=== PATIENT | male | born 1995 | race Caucasian/White ===

== ENCOUNTER 2017-07-22 10:39 | Emergency (ER) | payer BC ==
[2017-07-22] MEDS ORDERED: Ibuprofen TAB* 400 MG PO ONE (13:23)
--- NOTE | 2017-07-22 13:27 | ED ---
Head Injury - HPI Summary HPI Summary: 21 male presents to ED with complaints of head injury, headache, nausea, dizziness and feeling like he is in a daze since waking up this morning. Patient states he hit his head on the shower last night and earlier this week as well. Has not taken any medication for headache. Denies LOC, vomiting, vision changes/loss, memory loss and lethargy. No hematoma on head. No other injuries. Denies any other complaints at this time. No PMHx other than chronic migraines. Denies abdominal pain, trouble breathing or chest pain. No anticoagulants. - History Of Current Complaint Chief Complaint: EDHeadInjury Stated Complaint: HIT HEAD / 1DAY AGO Time Seen by Provider: 07/22/17 10:58 Hx Obtained From: Patient Mechanism Of Injury: Direct Blow - hit on shower head Onset/Duration: Started Hours Ago, Traumatic Onset of Pain: Hours - yesterday evening Severity Currently: Mild Severity Initially: Mild Pain Intensity: 3 Pain Scale Used: 0-10 Numeric Location of Head Injury: Parietal Character: Sharp, Throbbing, Aching Alleviating Factor(s): Rest Associated Signs And Symptoms: Nausea, Headache - Allergies/Home Medications Allergies/Adverse Reactions: Allergies Allergy/AdvReac Type Severity Reaction Status Date / Time No Known Allergies Allergy Verified 07/22/17 10:53 PMH/Surg Hx/FS Hx/Imm Hx Endocrine/Hematology History: Denies: Hx Diabetes Cardiovascular History: Denies: Hx Hypertension Respiratory History: Denies: Hx Asthma - Surgical History Surgery Procedure, Year, and Place: none - Immunization History Immunizations Up to Date: Yes Infectious Disease History: No Infectious Disease History: Denies: Traveled Outside the [place] in Last 30 Days - Family History Known Family History: Positive: None - Social History Alcohol Use: Occasionally Substance Use Type: Reports: None Smoking Status (MU): Never Smoked Tobacco Review of Systems Constitutional: Negative Eyes: Negative ENT: Negative Cardiovascular: Negative Respiratory: Negative Positive: Nausea Musculoskeletal: Negative Neurological: Other - feeling dizzy, dazed Positive: Headache All Other Systems Reviewed And Are Negative: Yes Physical Exam Triage Information Reviewed: Yes Vital Signs On Initial Exam: Initial Vitals Temp Pulse Resp BP Pulse Ox 98.2 F 73 15 131/74 98 07/22/17 10:49 07/22/17 10:49 07/22/17 10:49 07/22/17 10:49 07/22/17 10:49 Vital Signs Reviewed: Yes Appearance: Positive: Well-Appearing, No Pain Distress, Well-Nourished Skin: Positive: Warm, Skin Color Reflects Adequate Perfusion, Dry. Negative: Cold, Cyanosis @, Pale, Erythema @ Head/Face: Positive: Normal Head/Face Inspection, Other - no battles signs, racoon eyes, or facial bone tenderness. no hematomas or tenderness of scalp. Negative: Temporal Artery Tenderness, Scalp, Cephalohematoma Eyes: Positive: Normal, EOMI, BAL, Conjunctiva Clear ENT: Positive: Normal ENT inspection, Hearing grossly normal, Pharynx normal, TMs normal Neck: Positive: Supple, Nontender, No Lymphadenopathy Respiratory/Lung Sounds: Positive: Clear to Auscultation, Breath Sounds Present. Negative: Rales, Rhonchi, Wheezes Cardiovascular: Positive: Normal, RRR, Pulses are Symmetrical in both Upper and Lower Extremities. Negative: Murmur, Rub Abdomen Description: Positive: Nontender, No Organomegaly, Soft. Negative: CVA Tenderness (R), CVA Tenderness (L), Distended, Guarding, Peritoneal Signs, Pulsatile Mass Bowel Sounds: Positive: Present Musculoskeletal: Positive: Normal, Strength/ROM Intact. Negative: Pain @ Neurological: Positive: Normal - memory and concentration intact, Sensory/Motor Intact, Alert, Oriented to Person Place, Time, CN Intact II-III, Reflexes Intact , NV Bundle Intact Distally, Normal Gait, Finger to Nose - normal, Facial Symmetry, Speech Normal Psychiatric: Positive: Affect/Mood Appropriate - [place] Coma Scale Best Eye Response: 4 - Spontaneous Best Motor Response: 6 - Obeys Commands Best Verbal Response: 5 - Oriented Coma Scale Total: 15 Diagnostics - Vital Signs Vital Signs Temp Pulse Resp BP Pulse Ox 07/22/17 10:49 98.2 F 73 15 131/74 98 - Laboratory Lab Statement: Any lab studies that have been ordered have been reviewed, and results considered in the medical decision making process. Head Injury Course/Dx Course Of Treatment: PE findings and vital signs normal. Does not appear to need further evaluation or work up at this time. [place] CT scan rule does not recommend. Not showing signs that require or are concerning for hemorrhage requiring a CT. Possible mild concussion due to complaint of symptoms. No obvious signs of trauma or injury. given ibuprofen for headache. zofran for nausea. continue at home. follow up with pcp/formerly [facility]. aware of worsening signs and symptoms to watch out for. return if occur. - Diagnoses Provider Diagnoses: Head injury, Concussion without loss of consciousness Discharge - Discharge Plan Condition: Stable Disposition: HOME Prescriptions: Ondansetron ODT TAB* [Zofran 4 MG Odt TAB*] 4 mg PO Q6H PRN #5 tab.odt PRN Reason: Nausea Patient Education Materials: Head Injury (ED), Concussion (ED) Forms: *School Release Referrals: Non Staff,Doctor [Primary Care Provider] - Additional Instructions: Take excedrin or ibuprofen for headaches. Zofran for nausea if desired. Drink plenty of fluids and get plenty of rest. Avoid high concentrating, light stimulating activities. Refrain from physical activity until symptoms improve and you are cleared by PCP. Follow up in 1 week with primary care provider/[facility].
[2017-07-22 13:54] VITALS: BP 124/73
== END 2017-07-22 13:57 | disposition home or self-care (01) ==
LOC: ED 10:39
DX: S06.0X0A Concussion without loss of consciousness, initial encounter (principal); R11.0 Nausea; R51 Headache; S09.90XA Unspecified injury of head, initial encounter; W22.8XXA Striking against or struck by other objects, initial encounter; Y93.9 Activity, unspecified; Y92.9 Unspecified place or not applicable
CPT/HCPCS: 99282; A9270-GY

== ENCOUNTER 2018-07-29 01:07 | Emergency (ER) | payer BC ==
[2018-07-29] MEDS ORDERED: NS 0.9% 1000 ML* 1,000 ML IV ONE (01:08)
[2018-07-29] MEDS ORDERED: Metoclopramide IV* 5 MG/ML 2 ML VIAL IV SLOW PU ONE (01:08)
--- NOTE | 2018-07-29 01:11 | ED ---
Substance Abuse/Use - HPI Summary HPI Summary: Pt is a 22 y/o male [place] who presents to the ED c/o alcohol intoxication. He was found on the floor of his dorms, and possible drank an unknown amount of vodka. Pt is a level 5 caveat due to his AMS, therefore a proper history was not able to be obtained. - History Of Current Complaint Stated Complaint: ETOH Time Seen by Provider: 07/29/18 01:07 Hx Obtained From: EMS Hx From Patient Unobtainable Due To: Altered Mental Status Ingestion History: Type/Name Of Drug - Alcohol Character: Stuporous Associated Signs And Symptoms: Nausea, Vomiting - Allergies/Home Medications Allergies/Adverse Reactions: Allergies Allergy/AdvReac Type Severity Reaction Status Date / Time No Known Allergies Allergy Verified 07/22/17 10:53 Home Medications: Home Medications NK [No Home Medications Reported] 07/29/18 [History Confirmed 07/29/18] PMH/Surg Hx/FS Hx/Imm Hx Endocrine/Hematology History: Denies: Hx Diabetes Cardiovascular History: Denies: Hx Hypertension Respiratory History: Denies: Hx Asthma - Surgical History Surgery Procedure, Year, and Place: none - Family History Known Family History: Positive: Unknown - Level 5 caveat due to AMS - Social History Alcohol Use: Occasionally Hx Substance Use: No Substance Use Type: Reports: None Hx Tobacco Use: No Smoking Status (MU): Never Smoked Tobacco Review of Systems Positive: Vomiting, Nausea Positive: Other - Alert but not oriented due to intoxication All Other Systems Reviewed And Are Negative: Yes Physical Exam - Summary Physical Exam Summary: VITAL SIGNS: Reviewed. GENERAL: Patient is a well-developed and nourished MALE who is actively vomiting. Patient is not in any acute respiratory distress. HEAD AND FACE: No signs of trauma. No ecchymosis, hematomas or skull depressions. No sinus tenderness. EYES: PERRLA, EOMI x 2, No injected conjunctiva, no nystagmus. EARS: Hearing grossly intact. Ear canals and tympanic membranes are within normal limits. MOUTH: Oropharynx within normal limits. NECK: Supple, trachea is midline, no adenopathy, no JVD, no carotid bruit, no c- spine tenderness, neck with full ROM. CHEST: Symmetric, no tenderness at palpation LUNGS: Clear to auscultation bilaterally. No wheezing or crackles. CVS: Regular rate and rhythm, S1 and S2 present, no murmurs or gallops appreciated. ABDOMEN: Soft, non-tender. No signs of distention. No rebound no guarding, and no masses palpated. Bowel sounds are normal. EXTREMITIES: FROM in all major joints, no edema, no cyanosis or clubbing. NEURO: Alert but not oriented. No acute neurological deficits. Speech is normal and follows commands. Responsive. SKIN: Dry and warm Triage Information Reviewed: Yes Vital Signs Reviewed: Yes Re-Evaluation - Re-Evaluation First Eval Re-Evaluation Time: 01:52 Change: Worse Comment: Urinary and bowel incontinence. Course/Dx - Course Course Of Treatment: Pt is a 22 y/o male BIBA who presents to the ED c/o alcohol intoxication. He was found on the floor of his dorms, and possible drank an unknown amount of vodka. Pt is a level 5 caveat due to his AMS, therefore a proper history was not able to be obtained. A physical exam revealed the pt responsive and actively vomiting. At 1:52 pt had urinary and bowel incontinence. Final dx is alcohol intoxication. Pt is discharged home. - Diagnoses Provider Diagnoses: Alcohol intoxication Discharge - Sign-Out/Discharge Documenting (check all that apply): Patient Departure - Discharge - Discharge Plan Condition: Stable Disposition: HOME Patient Education Materials: Alcohol Intoxication (ED) Referrals: Non Staff,Doctor [Medical Doctor] - (2-3 days) Additional Instructions: RETURN TO THE EMERGENCY DEPARTMENT FOR CHANGING OR WORSENING SYMPTOMS. FOLLOW UP WITH PCP IN 1-2 DAYS. - Attestation Statements Document Initiated by Scribe: Yes Documenting Scribe: Amanda Mondragon Provider For Whom Scribe is Documenting (Include Credential): Valdo Rios MD Scribe Attestation: Amanda White, scribed for Valdo Rios MD on 07/29/18 at 0544.
[2018-07-29] MEDS ORDERED: hydrOXYzine IM* 50 MG/ML VIAL IM ONE (02:30)
[2018-07-29 06:30] VITALS: BP 102/53
== END 2018-07-29 06:29 | disposition home or self-care (01) ==
LOC: ED 01:07
DX: F10.129 Alcohol abuse with intoxication, unspecified (principal)
CPT/HCPCS: 96372; 96374; 99282; J2765; J3410